=== PATIENT | female | born 1970 | race Caucasian/White ===

== ENCOUNTER 2024-11-02 15:19 | Emergency (ER) | payer OTHER, SELFPAY ==
[2024-11-02 15:28] VITALS: BP 123/69
[2024-11-02 16:18] LABS: % Basophils 0.5 % (0-2); % Eosinophils 3.5 % (0-6); % Immature Granulocytes 0.4 % (0-0.5); % Lymphocytes 22.6 % (20.5-51.1); % Monocytes 5.3 % (1.7-9.3); % Neutrophils 67.7 % (42.2-75.2); Absolute Basophils 0.1 10^3/uL (0-0.2); Absolute Eosinophils 0.3 10^3/uL (0-0.7); Absolute Lymphocytes 2.2 10^3/uL (1.2-3.4); Absolute Monocytes 0.5 10^3/uL (0.1-0.6); Absolute Neutrophils 6.7 10^3/uL (1.4-6.5); Hematocrit 43.7 % (37.0-47.0); Hemoglobin 14.9 g/dL (12.0-16.0); Mean Corp Hgb Conc. 34.1 g/dL (33.0-37.0); Mean Platelet Volume 9.6 fL (7.4-10.4); Nucleated Red Blood Cells % 0 %; Platelet Count 238 10^3/uL (130-400); Red Blood Cell Count 5.33 10^6/uL (4.20-5.40); Red Cell Dist. Width 12.2 % (11.5-14.5); White Blood Cell Count 9.9 10^3/uL (4.8-10.8)
[2024-11-02 16:21] LABS: ALT (SGPT) 17 U/L (0-35); AST (SGOT) 18 U/L (14-36); Albumin 4.8 g/dl (3.5-5.0); Alkaline Phosphatase 69 U/L (38-126); Blood Urea Nitrogen 11 mg/dl (7-17); Carbon Dioxide 28 mmol/L (22-30); Chloride 102 mmol/L (98-107); Glucose 105 mg/dl (70-99); Potassium 4.1 mmol/L (3.5-5.1); Sodium 140 mmol/L (135-145); Total Bilirubin 0.8 mg/dl (0.2-1.3); Total Protein 7.9 g/dl (6.3-8.2); eGFR > 60.00
[2024-11-02] MEDS: NORCO 5/325 2 TABLET PO (18:59)
[2024-11-02 19:03] VITALS: BMI 24.2
[2024-11-02 19:05] VITALS: BP 123/31
[2024-11-02] MEDS: DILAUDID 1 MG IV (19:35)
--- NOTE | 2024-11-02 19:35 | ED.GENMED ---
History of Present Illness
General
Chief Complaint: Skin Problem
Source: patient and family
Time Seen by Provider: 11/02/24 17:09
History of Present Illness
History of Present Illness:
This a 54-year-old female presents with a wound to the right upper chest. Patient states started out as a blackhead sometime ago. Patient states that over the last 5 to 6 days she has tried squeezing it. She had a family member tried to pop it
with a pin. Patient was given a prescription for doxycycline by urgent care with no significant improvement. She states now it is more red and painful. No fevers. Mom at bedside states that patient has had persistent pain
Past History
Past History
ED Past Medical History: Other (Neuropathy)
Social History
Tobacco: Former smoker
Phy Exam
Physical Exam
Physical Exam:
CONSTITUTIONAL Patient alert and oriented to person, place and time. Well-appearing. Vital signs reviewed.
HEAD atraumatic, normocephalic.
EYES eyelids normal to inspection, Extraocular muscles intact, Conjunctiva normal, Sclera normal.
NECK normal range of motion, Trachea midline, no jugular venous distention.
RESPIRATORY CHEST No respiratory distress noted, Chest expansion equal. Abscess noted to the right upper chest wall. Surrounding redness noted that does not necessarily extend into the axilla. There is warmth but significant amount of tenderness
throughout and the abscess is fluctuant. It is approximately 2.5 cm x 2.5 cm
BACK normal inspection, no obvious deformities
UPPER EXTREMITY range of motion normal, Motor strength normal, no cyanosis, no edema.
LOWER EXTREMITY range of motion normal, Motor strength normal, no cyanosis, no edema.
NEURO Speech normal, No focal motor deficits, [place] coma scale 15, Memory normal, Cranial Nerves intact to screening exam.
SKIN skin warm, dry, and normal in color.
Course
Orders/Labs/Results
Orders:
Orders
11/02/24 15:47
Complete Blood Count/With Diff Urgent
Comprehensive Metabolic Panel Urgent
11/02/24 18:38
Hydrocodone 5/APAP 325 [[place] 5/325] 2 tablet PO NOW STA
11/02/24 19:20
HYDROmorphone [Dilaudid] 1 mg .ROUTE .STK-MED ONE
11/02/24 19:34
HYDROmorphone [Dilaudid] 1 mg IV NOW STA
HYDROmorphone [Dilaudid] 1 mg IV NOW STA
11/02/24 19:37
Wound Culture [Wound/Abscess/Other Culture] Urgent
FRANCA Source: Chest
Specimen Description: Right
Date Specimen was Collected: 11/02/24
Time Specimen was Collected: 19:36
11/02/24 19:54
Vancomycin 1 Gram/200 ml [Vancocin] 1 gram in 200 ml IV NOW
11/02/24 21:34
Diphenhydramine [Benadryl] 50 mg PO NOW STA
Abnormal Lab Results
11/02/24
15:47
Absolute Neuts (auto) 6.7 H 10^3/uL
(1.4-6.5)
Glucose 105 H mg/dl
(70-99)
11/02/24 15:47
11/02/24 15:47
Vital Signs
Initial and Last Documented VS:
Initial Vital Signs
Temp Pulse Resp BP Pulse Ox
97.8 F 83 18 123/69 99
11/02/24 15:28 11/02/24 15:28 11/02/24 15:28 11/02/24 15:28 11/02/24 15:28
Last Documented Vital Signs
Temp Pulse Resp BP Pulse Ox
97.8 F 83 18 123/31 95
11/02/24 15:28 11/02/24 15:28 11/02/24 15:28 11/02/24 19:05 11/02/24 20:45
Procedures
Incision/Drainage/Joint Aspiration
Right Chest:
Anethesia: 1% Lidocaine with Epi
Preparation: cleaned with Betadine
Type of procedure: incise and drain
Nature of site: abscess
Description of abscess: less than 3cm
Loculations broken up: Yes
How much fluid was obtained?: small amount
Fluid description: purulent
Treatment: left open for drainage and packed with gauze
MDM/Problems Addressed
MDM/Problems Addressed:
Chest wall abscess, cellulitis
*Pulse Oximetry
Patient hypoxic: no
*Critical Care Note
Total Time (30-74mins, 75-104mins- exclusive of procedures): Not Applicable
Data Reviewed
Source: patient and family
Patient Management
Discussion with other providers: Laundry Aide (Case discussed with Dr. Alaniz who will follow the patient)
Escalation/DeEscalation of care consider admission/obs:
Patient given IV dose of vancomycin. Also wound was incised and drained. Symptoms are much better. No longer has any induration. Loculations were broken up during I&D. Packing applied. Recommended outpatient follow-up for packing removal
ED Attending Note
-
Portions of this chart may have been created with voice recognition software.� Occasional wrong word or��sound alike� substitutions may have occurred due to the inherent limitations of voice recognition software.
Discharge Plan
Departure
Patient Disposition: Home (Routine Discharge)
Date of Disposition: 11/02/24
Time of Disposition: 21:41
Patient with high blood pressure during this ER visit?: No
Discharge Problem:
Abscess of chest wall
Instructions: Skin Abscess
Prescriptions:
New
sulfamethoxazole-trimethoprim [Bactrim DS] 800-160 mg tablet
1 tab PO BID Qty: 14 0RF
No Action
doxycycline hyclate 100 mg Capsule
100 mg PO BID
Referrals:
Obdulia Alaniz MD [Active] -
NONE,* [Family Provider] -
Activity Restrictions/Additional Instructions:
Please continue warm compresses and change dressings daily. The packing should be removed the next 48 hours. Return immediately for increased redness, fevers, worsening pain or any other concerns.
Interventions
Interventions:
*Risk Screen - Suicide Last Done: 11/02/24 15:28
*General Assessment Last Done: 11/02/24 19:06
*Neglect/Abuse Screening Last Done: 11/02/24 19:06
*ED- Fall Risk Assessment Last Done: 11/02/24 18:40
*ED COVID-19 Vaccine History Last Done: 11/02/24 19:06
ED-Skin Assessment Last Done: 11/02/24 19:06
Discharge Date and Time
Print Language: BELARUSIAN
[2024-11-02] MEDS: VANCOCIN 200 IV (20:31)
[2024-11-02 21:00] VITALS: BP 92/50
[2024-11-02] MEDS: BENADRYL 50 MG PO (21:42)
[2024-11-02 21:46] VITALS: BP 104/59
== END 2024-11-02 22:03 | disposition home or self-care (01) ==
LOC: EMR 15:19
PROVIDERS: Student in an Organized Health Care Education/Training Program; EMERGENCY PHYSICIAN Emergency Medicine
DX: L02.213 Cutaneous abscess of chest wall (principal); Z87.891 Personal history of nicotine dependence
CPT/HCPCS: 99283; 10060; 96365; 96375; 80053; 85025; 87070; 87077; 87185; 87205